=== PATIENT | female | born 1970 | race Caucasian/White ===

== ENCOUNTER 2017-05-02 06:42 | Emergency (ER) | payer OTHER ==
[~2017-05-02] VITALS: Ht 167.6 cm; Wt 96.0 kg
[2017-05-02] MEDS ORDERED: SEROQUEL100 M2 PO (06:56)
[2017-05-02] MEDS ORDERED: FLONASE ALLERG9.9 ML (06:56)
[2017-05-02] MEDS ORDERED: ORTHO TRI-CYCL1 EACH PO (06:56)
[2017-05-02] MEDS ORDERED: SYNTHROID75 MC1 PO (06:56)
[2017-05-02] MEDS ORDERED: PREDNISONE20 M1 PO (08:03)
[2017-05-02] MEDS ORDERED: AUGMENTIN 875-1 EAC2 PO (08:03)
== END 2017-05-02 08:14 ==
LOC: EDMED 06:42
DX: J06.0 Acute laryngopharyngitis (principal); Z87.891 Personal history of nicotine dependence
CPT/HCPCS: J7512